=== PATIENT | male | born 2000 | race Two or more races ===

== ENCOUNTER 2024-09-12 12:16 | Emergency (ER) | payer BC, SELFPAY ==
[2024-09-12 12:31] VITALS: BP 130/72; PULSE 61; RESP 18; TEMP 36.8; O2SAT 99; BMI 24.1
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
[2024-09-12] MEDS: ACETAMINOPHEN 500 MG TABLET 1000 MG PO (12:56)
[2024-09-12] MEDS: CYCLObenzaPRINE 5 MG TABLET PO (12:56)
[2024-09-12] MEDS: IBUPROFEN TAB 400 MG TABLET 800 MG PO (12:56)
== END 2024-09-12 14:52 | disposition home or self-care (01) ==
LOC: SERX 14:41
PROVIDERS: Emergency Provider Emergency Medicine; PCP Family Medicine
DX: S00.93XA Contusion of unspecified part of head, initial encounter (principal); S20.229A Contusion of unspecified back wall of thorax, initial encounter; V49.60XA Unspecified car occupant injured in collision with unspecified motor vehicles in traffic accident, initial encounter
CPT/HCPCS: 70450; 72125; 72128; 72131; 99284; A9270